=== PATIENT | female | born 1980 | race Caucasian/White ===

== ENCOUNTER 2016-10-18 12:34 | Emergency (ER) | payer MEDICAID ==
[~2016-10-18] VITALS: Ht 152.4 cm; Wt 108.9 kg
[~2016-10-18 12:34] MED LIST: CHERATUSSIN AC10 ML PO; CYMBALTA30 MG PO; EPIPEN0.3 MG/0.3 SUBCUT; ESTRACE2 MG PO; FLEXERIL10 MG PO; FLONASE16 GM NASBOTH; LISINOPRIL10 MG PO; LOTRISONE15 GM TOP; LYRICA50 MG PO; MEDROL DOSEPAK4 MG PO; MOBIC15 MG PO; NORCO 325-5 MG1 TAB PO; PROVENTIL HFA6.7 GM INH; PROVENTIL2.5 MG/0.5 INH; SYNTHROID75 MCG PO; TRAMADOL HCL50 MG PO; XANAX0.5 MG PO; ZOFRAN4 MG PO; ZYRTEC10 M4 PO
[2017-03-11] MEDS ORDERED: ZOLOFT100 MG PO (22:14)
== END 2016-10-18 13:25 | disposition short-term general hospital (02) ==
LOC: ER 12:34
DX: K02.9 Dental caries, unspecified (principal); Z88.1 Allergy status to other antibiotic agents
CPT/HCPCS: J1885

== ENCOUNTER 2016-12-05 12:07 | Emergency (ER) | payer MEDICAID ==
[~2016-12-05] VITALS: Ht 152.4 cm; Wt 111.1 kg
[2017-03-11] MEDS ORDERED: ZOLOFT100 MG PO (22:14)
== END 2016-12-05 13:35 | disposition left against medical advice (07) ==
LOC: ER 12:07
DX: N39.0 Urinary tract infection, site not specified (principal); E03.9 Hypothyroidism, unspecified; I10 Essential (primary) hypertension; F32.9 Major depressive disorder, single episode, unspecified; Z88.0 Allergy status to penicillin
CPT/HCPCS: J1885; J2765